=== PATIENT | female | born 1995 | race Caucasian/White ===

== ENCOUNTER 2019-05-31 08:20 | Emergency (ER) | payer OTHER ==
[2019-05-31 08:24] VITALS: BP 116/63; PULSE 61; TEMP 98.1; BMI 24.3
--- NOTE | 2019-05-31 08:52 | PDOC ---
Suture Removal/Wound Check HPI - History of Present Illness Chief Complaint: Suture/Staple Removal(Here) Stated Complaint: STITCHES REMOVAL Time Seen by Provider: 05/31/19 08:49 History Source: Yes: Patient Treated at: [facility] Date of Last ED visit: 05/20/19 - Previous ED Treatment Type of procedure performed on last visit: Yes: Laceration Repair Past History - Past Medical History Allergies/Adverse Reactions: Allergies Allergy/AdvReac Type Severity Reaction Status Date / Time No Known Allergies Allergy Verified 05/31/19 08:24 COPD: No - Suicide/Smoking/Psychosocial Hx Smoking History: Never smoked Hx Alcohol Use: Yes Drug/Substance Use Hx: No *Review of Systems - Review of Systems Constitutional: No: Chills, Fever *Physical Exam - Vital Signs Last Vital Signs Temp Pulse Resp BP Pulse Ox 98.1 F 61 16 116/63 99 05/31/19 08:22 05/31/19 08:22 05/31/19 08:22 05/31/19 08:22 05/31/19 08:22 - Physical Exam General Appearance: Yes: Appropriately Dressed. No: Apparent Distress HEENT: positive: Normal Voice Neck: positive: Supple Respiratory/Chest: negative: Respiratory Distress Integumentary: positive: Dry, Warm, Other (well healing lac to web space of R 1st and 2nd digits w/ 3 sutures intact) Medical Decision Making - Medical Decision Making 05/31/19 08:58 Suture removal to R hand 3 sutures removed No complications Return as needed *DC/Admit/Observation/Transfer Diagnosis at time of Disposition: Visit for suture removal - Discharge Dispostion Disposition: HOME Condition at time of disposition: Improved - Referrals - Patient Instructions Printed Discharge Instructions: DI for Suture Removal - Post Discharge Activity
== END 2019-05-31 08:55 | disposition home or self-care (01) ==
LOC: JERFT 08:20
DX: Z48.817 Encounter for surgical aftercare following surgery on the skin and subcutaneous tissue (principal); Z48.02 Encounter for removal of sutures
CPT/HCPCS: 99281-25

== ENCOUNTER 2021-06-27 20:14 | Emergency (ER) | payer OTHER ==
[2021-06-27 20:24] VITALS: BP 118/74; PULSE 63; TEMP 99.1; BMI 26.1
== END 2021-06-27 21:04 | disposition home or self-care (01) ==
LOC: FER 20:14
DX: R23.9 Unspecified skin changes (principal)
CPT/HCPCS: 99281-25

== ENCOUNTER 2021-07-24 23:44 | Emergency (ER) | payer OTHER ==
[2021-07-24 23:55] VITALS: BP 113/71; PULSE 78; TEMP 98.7; BMI 25.8
== END 2021-07-25 00:21 | disposition home or self-care (01) ==
LOC: FER 23:44
DX: Z77.098 Contact with and (suspected) exposure to other hazardous, chiefly nonmedicinal, chemicals (principal)
CPT/HCPCS: 99283-25

== ENCOUNTER 2023-01-15 19:20 | Emergency (ER) | payer OTHER ==
[2023-01-15 19:35] VITALS: BP 108/70; PULSE 64; RESP 16; TEMP 97.7; BMI 25.8
== END 2023-01-15 20:22 | disposition home or self-care (01) ==
LOC: FER 19:20
DX: S63.92XA Sprain of unspecified part of left wrist and hand, initial encounter (principal); W23.1XXA Caught, crushed, jammed, or pinched between stationary objects, initial encounter; Y99.0 Civilian activity done for income or pay
CPT/HCPCS: 99282-25